=== PATIENT | female | born 1950 | race Caucasian/White ===

== ENCOUNTER 2018-03-09 09:25 | Emergency (ER) | payer MEDICARE, BC ==
[2018-03-09 09:41] VITALS: BP 122/66
[2018-03-09] MEDS ORDERED: Sodium Chloride 0.9% 1,000 ML IV ONE (11:56)
[2018-03-09] MEDS ORDERED: Ondansetron 4 MG/2 ML SDV IVPUSH ONE (11:56)
--- NOTE | 2018-03-09 12:07 | EDM.PDOC ---
ED HPI GENERAL MEDICAL PROBLEM - General Chief Complaint: Gastrointestinal Problem Stated Complaint: [facility] Time Seen by Provider: 03/09/18 11:45 Source of Information: Reports: Patient History Limitations: Reports: No Limitations - History of Present Illness INITIAL COMMENTS - FREE TEXT/NARRATIVE: 59-year-old female presents via [facility] for evaluation and treatment of dizziness. Patient reports that she did not have any problems yesterday. She went to bed. when She awoke this morning she states that she had significant dizziness. Steadily improving throughout the day. She reports associated symptoms of an upset stomach, nausea and reports that her hands feel "weird". She states they feel numb and tingly. No numbness or tingling in her legs. She denies any vomiting, syncope, headache, chest pain or shortness of breath. As stated the dizziness is improving but is still present some. She was able to get up and go to the bathroom on her own with mild dizziness. She's never had any history of this. She denies any recent cough or cold symptoms. Hetal providers Dr. Kirby. Patient reports that she has neck pain but states she has this chronically. reports seen by a chiropractor on Friday and friday for her chronic neck pain. - Related Data Allergies Allergy/AdvReac Type Severity Reaction Status Date / Time animal dander Allergy Cannot Verified 03/09/18 09:36 Remember Penicillins Allergy Rash Verified 03/09/18 09:36 cold medication Allergy Cannot Uncoded 03/09/18 09:36 Remember dust Allergy Cannot Uncoded 03/09/18 09:36 Remember hay fever Allergy Cannot Uncoded 03/09/18 09:36 Remember Home Meds: Home Meds Hypromellose [Systane Gel] 1 applic EYEBOTH ASDIRECTED 07/05/15 [History] Lutein 20 mg PO DAILY 07/05/15 [History] Propylene Glycol/Peg 400 [Systane 0.3-0.4% Eye Drops] 1 drop EYEBOTH ASDIRECTED 07/05/15 [History] Multivitamin [Multivitamins] 1 cap PO DAILY 09/01/15 [History] Meclizine [Antivert] 25 mg PO TID PRN #20 tab 03/09/18 [Rx] Ondansetron [Zofran ODT] 4 mg PO Q6H PRN #20 tab.dis 03/09/18 [Rx] Past Medical History - Past Health History Medical/Surgical History: Denies Medical/Surgical History ED ROS GENERAL - Review of Systems Review Of Systems: See Below Constitutional: Denies: Fever, Chills Respiratory: Denies: Shortness of Breath, Cough Cardiovascular: Denies: Chest Pain GI/Abdominal: Reports: Nausea. Denies: Abdominal Pain, Vomiting Neurological: Reports: Dizziness, Numbness (reports in the bilateral arms), Tingling (reports in the bilteral arms). Denies: Headache, Syncope ED EXAM, DIZZINESS - Physical Exam Exam: See Below Exam Limited By: No Limitations General Appearance: Alert, WD/WN, No Apparent Distress Nystagmus: worsens with head to R, short duration Ears: Normal External Exam, TM Fluid (minimal bilateral ) Throat/Mouth: Normal Inspection, Normal Lips, Normal Voice, No Airway Compromise Head Exam: Atraumatic, Normocephalic Vertigo: worsens with head to R Neck: Normal Inspection, Non-Tender, Full Range of Motion Respiratory/Chest: No Respiratory Distress, Lungs Clear, Normal Breath Sounds Cardiovascular: Normal Peripheral Pulses, Regular Rate, Rhythm, No Murmur GI/Abdominal: Normal Bowel Sounds, Soft, Non-Tender Neurological: Alert, Normal Mood/Affect, Normal Dorsiflexion, CN II-XII Intact, Normal Plantar Flexion, Other (normal finger to nose testing, normal heel to mccord testing, rug cutter helper strength, dorsiflexion and plantarflexion are all 5/5 bilaterally, no pronator drift) Psychiatric: Normal Affect, Normal Mood Skin Exam: Warm, Dry, Normal Color EKG INTERPRETATION EKG Date: 03/09/18 Time: 10:29 Rhythm: NSR Rate (Beats/Min): 63 [place]: Normal P-Wave: Present QRS: RBBB ST-T: Normal QT: Prolonged EKG Interpretation Comments: NSR at 63 bpm. RSR' V1 - RBBB. Decreased voltage limb and precordial leads. Early "r" wave transition. QT is mildly prolonged. QTc is 439. Reviewed by myself and Dr. Camp. Course - Vital Signs Last Recorded V/S: Last Vital Signs Temp 98.2 F 03/09/18 09:32 Pulse 66 03/09/18 09:32 Resp 18 03/09/18 09:32 BP 122/66 03/09/18 09:32 Pulse Ox 100 03/09/18 09:32 Orthostatic Blood Pressure [ 124/71 Standing] Orthostatic Blood Pressure [ 130/62 Sitting] Orthostatic Blood Pressure [ 117/58 Supine] - Orders/Labs/Meds Orders: Active Orders 24 hr Category Date Time Status Orthostatic Vital Signs [RC] ASDIRECTED Care 03/09/18 11:56 Active CULTURE URINE [RM] Stat Lab 03/09/18 12:00 Results Labs: Laboratory Tests 03/09/18 03/09/18 03/09/18 Range/Units 10:25 10:25 10:25 WBC 3.87 L (3.98-10.04) K/mm3 RBC 4.97 (3.98-5.22) M/mm3 Hgb 14.4 (11.2-15.7) gm/L Hct 41.9 (34.1-44.9) % MCV 84.3 (79.4-94.8) fl MCH 29.0 (25.6-32.2) pg MCHC 34.4 (32.2-35.5) g/dl RDW Std Deviation 35.7 L (36.4-46.3) fL Plt Count 270 (182-369) K/mm3 MPV 9.1 L (9.4-12.3) fl Neutrophils % (Manual) 81 H (40-60) % Band Neutrophils % 1 (0-10) % Lymphocytes % (Manual) 14 L (20-40) % Atypical Lymphs % 0 % Monocytes % (Manual) 3 (2-10) % Eosinophils % (Manual) 1 (0.7-5.8) % Basophils % (Manual) 0 L (0.1-1.2) Platelet Estimate Adequate RBC Morph Comment Normal Sodium 139 (136-145) mEq/L Potassium 3.9 (3.5-5.1) mEq/L Chloride 107 (98-107) mEq/L Carbon Dioxide 22 (21-32) mEq/L Anion Gap 13.9 (5-15) BUN 16 (7-18) mg/dL Creatinine 0.7 (0.55-1.02) mg/dL Est Cr Clr Drug Dosing 71.60 mL/min Estimated GFR (MDRD) > 60 (>60) mL/min BUN/Creatinine Ratio 22.9 H (14-18) Glucose 119 H (80-115) mg/dL Calcium 9.4 (8.5-10.1) mg/dL Total Bilirubin 0.3 (0.2-1.0) mg/dL AST 16 (15-37) U/L ALT 27 (14-59) U/L Alkaline Phosphatase 70 (46-116) U/L Total Protein 6.8 (6.4-8.2) g/dl Albumin 3.6 (3.4-5.0) g/dl Globulin 3.2 gm/dL Albumin/Globulin Ratio 1.1 (1-2) TSH 3rd Generation 1.719 (0.358-3.74) uIU/mL Urine Color (Yellow) Urine Appearance (Clear) Urine pH (5.0-8.0) Ur Specific [place] (1.005-1.030) Urine Protein (Negative) Urine Glucose (UA) (Negative) Urine Ketones (Negative) Urine Occult Blood (Negative) Urine Nitrite (Negative) Urine Bilirubin (Negative) Urine Urobilinogen (0.2-1.0) Ur Leukocyte Esterase (Negative) Urine RBC (0-5) /hpf Urine WBC (0-5) /hpf Ur Epithelial Cells (0-5) /hpf Amorphous Sediment (NOT SEEN) /hpf Urine Bacteria (FEW) /hpf Urine Mucus (FEW) /hpf 03/09/18 Range/Units 12:00 WBC (3.98-10.04) K/mm3 RBC (3.98-5.22) M/mm3 Hgb (11.2-15.7) gm/L Hct (34.1-44.9) % MCV (79.4-94.8) fl MCH (25.6-32.2) pg MCHC (32.2-35.5) g/dl RDW Std Deviation (36.4-46.3) fL Plt Count (182-369) K/mm3 MPV (9.4-12.3) fl Neutrophils % (Manual) (40-60) % Band Neutrophils % (0-10) % Lymphocytes % (Manual) (20-40) % Atypical Lymphs % % Monocytes % (Manual) (2-10) % Eosinophils % (Manual) (0.7-5.8) % Basophils % (Manual) (0.1-1.2) Platelet Estimate RBC Morph Comment Sodium (136-145) mEq/L Potassium (3.5-5.1) mEq/L Chloride (98-107) mEq/L Carbon Dioxide (21-32) mEq/L Anion Gap (5-15) BUN (7-18) mg/dL Creatinine (0.55-1.02) mg/dL Est Cr Clr Drug Dosing mL/min Estimated GFR (MDRD) (>60) mL/min BUN/Creatinine Ratio (14-18) Glucose (80-115) mg/dL Calcium (8.5-10.1) mg/dL Total Bilirubin (0.2-1.0) mg/dL AST (15-37) U/L ALT (14-59) U/L Alkaline Phosphatase (46-116) U/L Total Protein (6.4-8.2) g/dl Albumin (3.4-5.0) g/dl Globulin gm/dL Albumin/Globulin Ratio (1-2) TSH 3rd Generation (0.358-3.74) uIU/mL Urine Color Yellow (Yellow) Urine Appearance Clear (Clear) Urine pH 8.5 H (5.0-8.0) Ur Specific [place] 1.015 (1.005-1.030) Urine Protein Negative (Negative) Urine Glucose (UA) Negative (Negative) Urine Ketones Trace H (Negative) Urine Occult Blood Negative (Negative) Urine Nitrite Negative (Negative) Urine Bilirubin Negative (Negative) Urine Urobilinogen 0.2 (0.2-1.0) Ur Leukocyte Esterase Negative (Negative) Urine RBC Not seen (0-5) /hpf Urine WBC 0-5 (0-5) /hpf Ur Epithelial Cells 0-5 (0-5) /hpf Amorphous Sediment Few H (NOT SEEN) /hpf Urine Bacteria Many H (FEW) /hpf Urine Mucus Not seen (FEW) /hpf Meds: Medications Discontinued Medications Generic Name Dose Route Start Last Admin Trade Name Freq PRN Reason Stop Dose Admin Sodium Chloride 1,000 mls @ 999 mls/hr 03/09/18 11:56 03/09/18 12:06 Normal Saline IV 03/09/18 12:56 999 mls/hr ONETIME ONE Administration Meclizine HCl 25 mg 03/09/18 11:56 03/09/18 12:08 Antivert PO 03/09/18 11:57 25 mg NOW STA Administration Ondansetron HCl 4 mg 03/09/18 11:56 03/09/18 12:07 Zofran IVPUSH 03/09/18 11:57 4 mg ONETIME ONE Administration - Re-Assessments/Exams Free Text/Narrative Re-Assessment/Exam: 03/09/18 14:20 Patient's dizziness continues to improve and is nearly resolved. Has been up and to the bathroom on several occasions without problem. Will discharge home with zofran and meclizine. Follow-up if not much better. Discharge instructions as documented. Departure - Departure Time of Disposition: 14:23 Disposition: Home, Self-Care 01 Condition: Good Clinical Impression: Vertigo, Nausea - Discharge Information *PRESCRIPTION DRUG MONITORING PROGRAM REVIEWED*: No *COPY OF PRESCRIPTION DRUG MONITORING REPORT IN PATIENT [place]: No Prescriptions: Meclizine [Antivert] 25 mg PO TID PRN #20 tab PRN Reason: Dizziness Ondansetron [Zofran ODT] 4 mg PO Q6H PRN #20 tab.dis PRN Reason: Nausea Instructions: Nausea, Adult, Vertigo, [id number] Referrals: PCP,None [Primary Care Provider] - Eliza Verdugo MD [Physician] - Forms: ED Department Discharge Additional Instructions: Take the meclizine as prescribed. 1 tab 3 times a day as needed for dizziness. make sure you are drinking plenty of fluids. May use the Zofran 1 tab sublingual every 6-8 hours as needed for nausea. Symptoms should resolve within the next few days, if they do not follow up with your primary care provider. you may need to see PT or ear, nose and throat for definitive treatment of the vertigo. Please return to the ER if your symptoms change or worsen. - My Orders Last 24 Hours: My Active Orders 03/09/18 11:56 Orthostatic Vital Signs [RC] ASDIRECTED 03/09/18 12:00 CULTURE URINE [RM] Stat - Assessment/Plan Last 24 Hours: My Active Orders 03/09/18 11:56 Orthostatic Vital Signs [RC] ASDIRECTED 03/09/18 12:00 CULTURE URINE [RM] Stat
== END 2018-03-09 14:45 | disposition home or self-care (01) ==
LOC: JD.ED 09:25
DX: R42 Dizziness and giddiness (principal); R11.0 Nausea; Z88.0 Allergy status to penicillin; Z79.899 Other long term (current) drug therapy
CPT/HCPCS: 36415; 80053; 81001; 84443; 85007; 85027; 87086; 93005; 96361; 96374; 99285; A9270; J2405; J7040